=== PATIENT | male | born 1955 | race Caucasian/White ===

== ENCOUNTER 2019-03-23 06:19 | Inpatient (IN) ==
--- NOTE | 2019-02-25 15:00 | PAT Medication Instructions ---
Medication Instructions Date of Service February 25, 2019 Home Medications carboxymethylcellulose sodium [Refresh Tears] 2 drp OPHTHALMIC (EYE) BID PRN diclofenac sodium 75 mg PO BID multivitamin 1 tab PO QAM omeprazole 20 mg PO QAM ASK your surgeon for instructions diclofenac sodium 75 mg PO BID DO NOT take the morning of surgery multivitamin 1 tab PO QAM Take morning of surgery With a small sip of water, OTHERWISE NOTHING TO EAT OR DRINK AFTER MIDNIGHT: carboxymethylcellulose sodium [Refresh Tears] 2 drp OPHTHALMIC (EYE) BID PRN (if needed) omeprazole 20 mg PO QAM Other Notes If you have any questions please call us at [phone] or [phone] or [phone] or [phone]
--- NOTE | 2019-02-26 08:32 | History & Physical Report ---
Date of Service February 26, 2019 date of surgery: 03/23/19 Assessment & Plan (1) Osteoarthritis of right knee: Risks and benefits of procedure discussed in detail today, patient would like to proceed with a Right total knee replacement at [facility] as scheduled. will obtain medical clearance through his PCP at the [facility] prior to surgery as well as obtain PATs at [facility]. Will place on ASA 81mg po bid x 1 month post op, f/u 2 weeks post op for routine post-operative care and x-ray, sooner if having any problems. will make arrangements for HHPT at the time of discharge. At this point in time, has failed conservative measures and would like to proceed with surgical intervention. History of Present Illness Chief Complaint: Right knee pain Primary Care Provider: OCTAVIANO PCP Josh is a 63 year old male who complains of right knee pain, presents for pre-op evaluation prior to a Right total knee replacement by dr Galeano at [facility]. He complains of pain, crepitus, decreased range of motion, instability and stiffness in his knee. He states that the symptoms have been chronic and non- traumatic and the pain occurs constantly with intermittent worsening. Currently the patient states that the symptoms are moderate-severe. The pain is described as aching, sharp and throbbing. The symptoms are aggravated by ascending stairs, daily activities, first steps while awake walking. Prior NSAIDs include Aleve and ibuprofen. Allergies Allergy/AdvReac Type Severity Reaction Status Date / Time No Known Allergies Allergy Unverified 02/23/19 15:06 Home Medications Home Medications Medication Instructions Recorded Confirmed Type carboxymethylcellulose sodium 2 drp OPHTHALMIC (EYE) BID PRN 02/23/19 02/23/19 History [Refresh Tears] diclofenac sodium 75 mg PO BID 02/23/19 02/23/19 History multivitamin 1 tab PO QAM 02/23/19 02/23/19 History omeprazole 20 mg PO QAM 02/23/19 02/23/19 History Past Med/Surg History Medical History Alcoholism No ETOH x 8 years Diabetes mellitus, type 2 diet controlled Diverticular disease GERD (gastroesophageal reflux disease) Osteoarthritis Surgical History History of bowel resection History of cholecystectomy History of colonoscopy History of colostomy History of colostomy reversal History of esophagogastroduodenoscopy (EGD) History of hernia repair History of orchiectomy, unilateral History of surgery right/left kidney tumor removal (benign) History of tooth extraction Family History (Updated 02/26/19 @ 08:31 by Addison Guzman PA-C) Unknown No family history of adverse response to anesthesia Social History Preferred Language: Ethiopian Communication Ability: Effective Fish Cutter Required: No Beliefs That Will Affect Care: None Current Living Situation: Alone Other Information That Helps Us Care for You: No Feels Safe at Home: Yes Safety Concerns: Feels Safe At This Time Smoking Status: Former smoker Do You Dip or Chew Tobacco: No ; Smoking End Date: QUIT 25 YEARS AGO ; Second Hand Exposure: No ; Tobacco Cessation Education Requested by Patient: No Hx Alcohol Use: Yes (RECOVERING ALCOHOLIC - QUIT 8 YEARS AGO) Hx Substance Use: No Review of Systems Review of Systems: All systems reviewed & are unremarkable except as noted in HPI & below Constitutional: no fever, no chills and no sweats Respiratory: no cough and no dyspnea Cardiovascular: no chest pain, no dyspnea and no orthopnea Gastrointestinal: no abdominal pain, no nausea and no vomiting Musculoskeletal: as per Subjective / HPI Physical Exam Physical Exam: Ht: 5ft 8in Wt: 99.8kg BP: 122/76 Pulse: 62 Constitutional: WD/WN, vitals as above no acute distress Respiratory: normal respiratory effort, lungs clear to auscultation no respiratory distress, no labored breathing and does not use accessory muscles Cardiovascular: RRR, no murmur, no edema Gastrointestinal (Abdomen): normal bowel sounds, soft, nontender, no hepatosplenomegaly Musculoskeletal: Knee: + knee abnormal to inspection (Right knee), + effusion (+1 effusion), + surgical incision (well healed portals), + limited ROM of knee (ROM 0/3/110), + knee ROM with crepitation, + joint line tenderness (medial joint line) and + Claire's sign positive; no deformity, no skin erythema, no ecchymosis, no valgus laxity, no varus laxity, anterior drawer test negative, Segundo's sign negative and pivot shift test negative Results & Data Diagnostic Findings Right Knee X-ray from 12/09/18 showing advanced degenerative changes to the right knee, narrowing of the medial compartment and patello-femoral joint with patellar spurring noted, findings showing joint space narrowing of the medial compartment and patello-femoral joint, osteophyte formation and subchondral sclerosis noted. overall varus alignment. no acute bony pathology noted.
--- NOTE | 2019-02-26 12:19 | Anesthesiology Consultation ---
Date of Service February 26, 2019 Assessment & Plan (1) Encounter for pre-operative examination: - Awaiting review preop testing (labs, EKG, CXR). - Awaiting surgeon-ordered PCP preop evaluation scheduled 02/19 ([facility]). Chart Review Chart Review: Patient seen in Pre Admission Testing Teaching & Discussion Pre-Anesthesia Teaching/Discussion Notes: Instructed NPO after midnight before surgery,except medications with 15 cc of water. Medication instructions provided according to the PAT guidelines. History Surgery Operation Date: 03/23/19 11:25 Proposed Procedures p Right Total Knee Arthroplasty - Maxx Galeano DO Height/Weight Height: 5 ft 8 in Weight: 107.2 kg Allergies Allergy/AdvReac Type Severity Reaction Status Date / Time No Known Allergies Allergy Unverified 02/23/19 15:06 Medications Home Medications Medication Instructions Recorded Confirmed Last Taken carboxymethylcellulose sodium 2 drp OPHTHALMIC (EYE) BID PRN 02/23/19 02/23/19 Unknown [Refresh Tears] diclofenac sodium 75 mg PO BID 02/23/19 02/23/19 Unknown multivitamin 1 tab PO QAM 02/23/19 02/23/19 Unknown omeprazole 20 mg PO QAM 02/23/19 02/23/19 Unknown Past Medical History Medical History Diabetes mellitus, type 2 diet controlled Diverticular disease GERD (gastroesophageal reflux disease) controlled Obesity Osteoarthritis Renal neoplasm s/p resection (benign) Exercise / Class Metabolic Activity III < 4 Walking/Shop/Light housework Past Family History Family History Unknown No family history of adverse response to anesthesia Past Surgical History Surgical History History of bowel resection 2/2 diverticulitis History of cholecystectomy History of colonoscopy History of colostomy History of colostomy reversal History of esophagogastroduodenoscopy (EGD) History of hernia repair History of orchiectomy, unilateral History of surgery right/left kidney tumor removal (benign) History of tooth extraction Past Anesthesia History No Hx of Anesthesia Complications and No Family Hx of Anesthesia Complications History of PONV No Hx of PONV and No Hx of Motion Sickness Social History Smoking Status: Former smoker Do You Dip or Chew Tobacco: No Smoking End Date: QUIT 25 YEARS AGO Hx Alcohol Use: Yes (RECOVERING ALCOHOLIC - No ETOH x 8 YEARS) Hx Substance Use: No substance use type: does not use Review of Systems Reflux controlled. Patient denies chest pain, shortness of breath, cough, wheezing, palpitations. Physical Exam Vital Signs Last Vital Signs Temp 36.8 C 02/26/19 12:14 Pulse 83 02/26/19 12:14 Resp 20 02/26/19 12:14 BP 128/78 02/26/19 12:14 Pulse Ox 96 02/26/19 12:14 PHYSICAL Full neck and c-spine range of motion. Full TMJ range of motion. TMD 3 finger breaths Mallampati Score 3 (small oral opening) Dentition: missing side tooth Lungs: clear throughout to auscultation Cardiac: regular rate and rhythm, no murmurs noted Spine: normal Carotid arteries: negative bruit Extremities: no edema Trimmed munguia Thick neck
[2019-02-26 13:17] LABS: Basophils # (auto) 0.03 K/uL (0-0.2); Basophils % (auto) 0.6 %; Eosinophils % (auto) 3.9 %; Hematocrit (blood only) 42.9 % (42-52); Immature Granulocytes # (auto) 0.02 K/uL (0.00-0.02); Immature Granulocytes % (auto) 0.4 %; Lymphocytes # (auto) 1.18 K/uL (1.2-3.4); Lymphocytes % (auto) 23.3 %; Mean Corpuscular Hemoglobin 31.2 pg (25-34); Mean Corpuscular Volume 89.2 fL (80-100); Mean Platelet Volume 10.2 fL (7.4-10.4); Monocytes # (auto) 0.25 K/uL (0.11-0.59); Monocytes % (auto) 4.9 %; Neutrophils # (auto) 3.39 K/uL (1.4-6.5); Neutrophils % (auto) 66.9 %; Platelet Count 160 K/uL (130-400); RDW Coefficient of Variation 13.8 % (11.5-14.5); RDW Standard Deviation 44.6 fL (36.4-46.3); Red Blood Count 4.81 M/uL (4.7-6.1); White Blood Count 5.07 K/uL (4.8-10.8)
--- NOTE | 2019-02-26 13:22 | XRay Report ---
XR chest Pre-admission PA/Lat HISTORY: Preop. COMPARISON: None. FINDINGS: Small linear scarlike density within the right middle lobe, unchanged. The lungs are otherw ise clear. No pleural effusions. No pneumothorax. The heart is normal in size. IMPRESSION: No significant change compared to the prior study. No acute process. Electronically signed by: Coy Rendon M.D. 02/26/2019 1:20 PM
[2019-02-26 13:27] LABS: Partial Thromboplastin Time 25.9 Seconds (21.0-31.0); Prothrombin Time 10.6 Seconds (9.0-12.0)
[2019-02-26 13:36] LABS: Appearance Urine Clear (Clear); Bacteria Urine Automated Negative (Negative); Bilirubin Urine Negative (Negative); Blood Urine Negative (Negative); Color Urine Dark Yellow; Epithelial Cell Urine Auto >30 /lpf (0-5); Glucose Urine UA Negative (Negative); Ketones Urine Trace (Negative); Leukocyte Esterase Urine Trace (Negative); Nitrite Urine Negative (Negative); Protein Urine Negative (Negative); RBC Urine Automated 0-4 /hpf (0-4); Specific Gravity Urine 1.027 (1.000-1.030); Urobilinogen Urine Negative (Negative); pH Urine 5.5 (4.5-7.5)
[2019-02-26 13:39] LABS: Calcium 8.8 mg/dl (8.5-10.1); Creatinine Clr Calc Pharmacy 80.2 ml/min; Est GFR (African American) 82.1; Est GFR (Non-African American) 70.9; Potassium 4.3 mmol/L (3.5-5.1)
[~2019-03-23 06:19] MED LIST: ACETAMINOPHEN 500 MG TAB PO SCH; CEFAZOLIN 2000MG 2,000 MG/15 ML SYR IV SCH; CeleBREX 200 MG CAP PO SCH; FAMOTIDINE 20 MG TAB PO SCH; GABAPENTIN 300 MG CAP PO SCH; LR 500ML BOLUS, THEN 15ML/HR IV SCH; METOCLOPRAMIDE HCL 10 MG TABLET PO SCH; ROPIVACAINE 0.5% HCL/PF 150 MG, BUPIVACAINE 0.5% MPF 30 ML, EPINEPHrine 30MG/30ML (OR U... INFIL SCH; TRANEXAMIC ACID 1,000 MG **IV Pre-op IV SCH; dexAMETHasone 4 MG TAB PO SCH
[2019-03-23] MEDS ORDERED: TRANEXAMIC ACID 1,000 MG **IV Intra-op IV SCH (06:30)
[2019-03-23] MEDS ORDERED: BUPIVACAINE 0.5 % 5 MG/1 ML PF 10ML VIAL ONE (06:33)
[2019-03-23] MEDS ORDERED: BACITRACIN INJ 50,000 UNIT VIAL ONE (06:58)
[2019-03-23] MEDS ORDERED: MIDAZOLAM HCL 1 MG/ML 2ML VIAL ONE (07:04)
[2019-03-23] MEDS ORDERED: fentaNYL citrate 100 MCG/2 ML VIAL ONE (07:04)
--- NOTE | 2019-03-23 07:27 | History & Physical Bridge Note ---
Date of Service March 23, 2019 History & Physical Bridge Note I have examined the patient, reviewed the History & Physical and in the interval since the performance of the History & Physical I have noted the following changes of clinical significance: no changes noted
[2019-03-23] MEDS ORDERED: fentaNYL citrate 100 MCG/2 ML VIAL IV PRN (08:10)
[2019-03-23] MEDS ORDERED: ONDANSETRON INJ 2 MG/ML 2 ML VIAL IV PRN ×2 (08:10→12:00)
[2019-03-23] MEDS ORDERED: ePHEDrine sulfate 50 MG/ML AMP IV PRN (08:10)
[2019-03-23] MEDS ORDERED: ATROPINE SULFATE 0.1 MG/ML 10ML SYR IV PRN (08:10)
[2019-03-23] MEDS ORDERED: PROPOFOL IV EMULSION 10 MG/ML 20 ML VIAL IV ONE (09:09)
--- NOTE | 2019-03-23 09:45 | Operative Report ---
Post Operative Report Pre & Post Diagnosis Operation Date: 03/23/19 08:35 Pre-Op Diagnosis: Unilateral Primary Osteoarthritis, Right Knee Post-Op Diagnosis: Unilateral Primary Osteoarthritis, Right Knee I identified the patient and participated in the time-out.: Yes Procedure Operation Date: 03/23/19 08:35 Actual Procedures p Right Total Knee Arthroplasty(Right) utilizing Jones & NephProactive Comfort journey 2 patient matched total knee arthroplasty size 6 femur 5 tibia 12 poly-32 oval patella- Maxx Galeano DO Surgeon Maxx Galeano DO Glucose And Syrup Weigher Kory MOSHER Estimated Blood Loss 5 Findings Consistent with Post-Op Diagnosis Patient presents with severe end-stage DJD right knee with varus alignment bone to bone eburnated bone marginal osteophyte subchondral cystic changes moderate to large effusion no response to conservative management Specimens Bone and cartilage Drains Medium bore Hemovac Complications none Disposition Accompanied Patient To Recovery: No Disposition: Recovery Room Indications Patient presents as a 63-year-old white male with severe end-stage tricompartmental degenerative joint disease of the right knee no response to conservative management clinic physical therapy anti-inflammatories relative rest activity modification corticosteroid injection Visco supplementation patient presents for right total knee arthroplasty the above intraoperative findings no time surgery Description of Procedure After proper identification of the patientAfter proper prepping and draping of the Right lower extremity anterior midline incision was made over the region of the extensor extensor mechanism after meticulous hemostasis was obtained and maintained in subcutaneous tissues a medial parapatellar incision was made The patella was subluxed lateralward the medial lateral gutter were cleaned from any hypertrophic synovitis and scar tissue of the distal femoral block was placed and the distal femoral osteotomy cut was made subsequently the chamfers anterior and posterior osteotomy cuts were made utilizing the 4-in-1 block the tibia was subsequently subluxed anteriorward medial and ateral meniscal remnants were excised in their entirety remnants of the anterior and posterior cruciate ligaments were excised in their entirety excellent exposure of the proximal tibia was obtained the tibial osteotomy guide was placed on the proximal tibial osteotomy cut was made once again the knee was irrigated with copious amounts of sterile saline solution the patella was subsequently everted lateralward thickened scar tissue around the patella was removed the patella was subsequently cut utilizing a freehand technique and was drilled prepared for final preparation and placement of patella socially flexion-extension gaps were checked and the equal and symmetric trials were placed to the appropriate femoral and tibial trials with poly-spacer being placed for equal flexion and extension gaps and full range of motion including extension to 0 and flexion to 140 the trial components after having been taken to recovery range of motion was subsequently removed meticulous hemostasis was obtained and maintained subsequently a knee block injection of joint cocktail including ropivacaine 0.5% 150 mg. Bupivacaine 0.5% epinephrine 1-200,030 mL's toradol 30 mg dexamethasone 4 mg ketamine 10 mg clonidine 100 micrograms normal saline solution 30 mg was infiltrated into the soft tissues of the posterior knee medial lateral gutters and periosteal synovium special attention was paid to protect neurovascular structures at all times subsequently trial components having been removed the knee was irrigated with sterile saline solution. debris was removed the proximal tibia was subsequently prepared and was made ready for the placement of the tibial component tibial component was also cemented and tamped into position the femoral component was subsequently placed and cemented in the position the patellar component was subsequently cemented in position because hemostasis once again obtained and maintained wound having been thoroughly irrigated with debridement and debridement lavage was performed as well as a medial parapatellar incision closed with #1 Vicryl in interrupted fashion subcutaneous was closed with #2 Vicryl skin was closed with skin clips. PA-C was necessary for prepping and drapping as well as wound closure of deep fascia Sub cutaneous tissue and skin and was necessary for the case. A sterile compressive dressing was placed patient was taken to recovery in stable condition of report dictated by Froylan I attest to the content of the Intraoperative Record and any orders documented therein. Any exceptions are noted below. I attest to the content of the Intraoperative Record and any orders documented therein. Any exceptions are noted below.
--- NOTE | 2019-03-23 11:05 | XRay Report ---
XR knee RT 1 or 2V routine CLINICAL HISTORY: 63 years-old Male presenting with Surgical Post Op. TECHNIQUE: Frontal and lateral views of the right knee were obtained. COMPARISON: None. FINDINGS: Postsurgical changes of total right knee arthroplasty with patellar resurfacing. Expected intra-artic ular and soft tissue emphysema. Surgical drains in place. Overlying skin rafael. No periprosthetic f racture or lucency. No malalignment. IMPRESSION: Expected postsurgical appearance status post total right arthroplasty with patellar resurfacing. Electronically signed by: Brian Saini M.D. 03/23/2019 11:03 AM
--- NOTE | 2019-03-23 11:55 | Anesthesiology Progress Note ---
Date of Service March 23, 2019 Anesthesia Post Procedure Vital Signs Vital Signs: Temp Pulse Pulse Resp BP BP Pulse Ox 03/23/19 11:35 76 17 128/77 92 03/23/19 11:25 97.7 F 76 16 129/69 94 03/23/19 11:15 77 12 137/83 97 03/23/19 11:05 73 14 139/79 98 03/23/19 10:55 74 15 140/85 93 03/23/19 10:45 73 15 132/82 95 03/23/19 10:35 77 12 135/82 95 03/23/19 10:25 98.2 F 73 14 142/86 H 100 03/23/19 06:57 98.4 F 72 18 147/95 H 97 Transfer of Care Handoff Completed per policy Notes Mental Status: alert / awake / arousable and participated in evaluation Patient Amnestic to Procedure: Yes Nausea / Vomiting: adequately controlled Pain: adequately controlled Airway Patency, RR, SpO2: stable & adequate BP & HR: stable & adequate Hydration State: stable & adequate Neuraxial Anesthesia: was administered and sensory block is resolving Anesthetic Complications: no major complications apparent and Pt Satisfied with anesthetic care
[2019-03-23] MEDS ORDERED: OXYCODONE HCL IR 5 MG TAB (IMMEDIATE RELEASE) PO PRN (12:00)
[2019-03-23] MEDS ORDERED: MAGNESIUM HYDROXIDE SUSP 30 ML UDC PO PRN (12:00)
[2019-03-23] MEDS ORDERED: ARTIFICIAL TEARS OP PRN (12:00)
[2019-03-23] MEDS ORDERED: NALOXONE HCL 0.4 MG/1 ML VIAL/CARP IV PRN (12:00)
[2019-03-23] MEDS ORDERED: bisacodyL 10 MG SUPP PR PRN (12:00)
[2019-03-23] MEDS ORDERED: HYDROmorphone INJ 0.5 MG/0.5 ML SYR IV PRN (12:00)
[2019-03-23] MEDS ORDERED: PHARMACY GLYCEMIC MGMT CONSULT PRN (12:22)
[2019-03-23] MEDS ORDERED: CARBOHYDRATES FOR HYPOGLYCEMIA PO PRN (12:45)
[2019-03-23] MEDS ORDERED: DEXTROSE 50% 50 ML SYRINGE IV PRN (12:45)
[2019-03-23] MEDS ORDERED: GLUCOSE 10 TABS/TUBE PO PRN (12:45)
[2019-03-23] MEDS ORDERED: GLUCOSE 40% GEL 15 GM TUBE PO PRN (12:45)
[2019-03-23] MEDS ORDERED: GLUCAGON FOR INJ 1 MG VIAL IM PRN (12:45)
[2019-03-23] MEDS: SODIUM CHLORIDE 0.9% 1000ML 1,000 ML IV SCH ×2 (12:47→23:59)
[2019-03-23] MEDS: INSULIN ASPART 100 UNITS/ML 3 ML PEN SC SCH ×3 (13:25→21:39)
[2019-03-23] MEDS: ACETAMINOPHEN 500 MG TAB PO SCH ×2 (13:28→21:37)
--- NOTE | 2019-03-23 14:16 | Pharmacy Report ---
Glycemic Control Consultation - Date of Service March 23, 2019 - Scope Scope: Glycemic Pharmacist consulted by Kory Lui PA-C on 03/23/19 for glycemic control and to write orders per [facility] inpatient glycemic control protocol - Objective Weight: 107.2 kg Accuchecks BSG (last 24hrs): 03/23/19 03/23/19 06:48 10:37 POC Glucose 129 H 158 H - Recent Pertinent Medications Outpatient Anti-diabetic Regimen: * Diet-controlled * Per patient - previously on metformin, but was discontinued because his blood sugars were well controlled (unsure of last A1c) * A1c pending for 03/24/19 AM Risk Factors for Insulin Resistance: * Steroids: Dexamethasone 8 mg PO x 1 preoperatively * Recent Surgery: POD #0 s/p right total knee arthroplasty * Diet: T2DM - Assessment & Plan Assessment & Plan: ASSESSMENT: * WAdelaide is a 63 year old male POD #0 s/p right total knee arthroplasty * Dexamethasone 8 mg PO x 1 given preoperatively * Patient has a history of diabetes - previously taking metformin, but now diet controlled * Will assess current glycemic control with AM A1c * BSG at 1454 was 234 mg/dL (approximately 2.5 hours after eating) * Will order one-time dose of Lantus in light of possible steroid-induced hyperglycemia PLAN FOR INPATIENT GLYCEMIC CONTROL: * Basal insulin * Lantus 16 unit dose this afternoon (0.2 unit/kg of adjusted body weight) * Reassess ongoing basal needs tomorrow * Bolus insulin * NovoLog per scale ACHS or Q6hrs while NPO * Goal Range: Low 110 mg/dL - High 150 mg/dL * Correction Factor: 25 mg/dL/unit * Nutritional / Prandial insulin per carb ratio of 1 unit per 8 grams CHO consumed * Overnight checks at 00,04 with same parameters * Please note that the plan above was derived based on current level of insulin resistance and hospital stress. These recommendations are appropriate for inpatient admission only. Plan of care upon discharge will need to be reassessed to avoid potential outpatient hypo/hyperglycemia. Thank you.
[2019-03-23] MEDS ORDERED: LANTUS PER UNIT CHARGE SQ ONE (15:15)
[2019-03-23] MEDS: CEFAZOLIN 2000MG 2,000 MG/15 ML SYR IV SCH (16:33)
[2019-03-23] MEDS ORDERED: SENNA 8.6 MG TAB PO SCH (21:00)
[2019-03-23] MEDS: DOCUSATE SODIUM 100 MG CAP PO SCH (21:37)
[2019-03-23] MEDS: ASPIRIN 81 MG ECTAB PO SCH (21:38)
[2019-03-24] MEDS: CEFAZOLIN 2000MG 2,000 MG/15 ML SYR IV SCH
[2019-03-24] MEDS: INSULIN ASPART 100 UNITS/ML 3 ML PEN SC SCH ×3 (00:12→08:43)
[2019-03-24] MEDS: ACETAMINOPHEN 500 MG TAB PO SCH (05:51)
[2019-03-24 06:55] LABS: Hematocrit (blood only) 36.1 % (42-52); Mean Corpuscular Volume 86.2 fL (80-100); Mean Platelet Volume 9.5 fL (7.4-10.4); Platelet Count 153 K/uL (130-400); RDW Coefficient of Variation 13.2 % (11.5-14.5); RDW Standard Deviation 41.1 fL (36.4-46.3); Red Blood Count 4.19 M/uL (4.7-6.1); White Blood Count 11.58 K/uL (4.8-10.8)
[2019-03-24 07:26] LABS: BUN Creatinine Ratio 23.2 (10-20); Calcium 8.4 mg/dl (8.5-10.1); Creatinine Clr Calc Pharmacy 91.1 ml/min; Est GFR (African American) 95.8; Est GFR (Non-African American) 82.6; Potassium 3.6 mmol/L (3.5-5.1)
--- NOTE | 2019-03-24 07:39 | Orthopedic Progress Note ---
Date of Service March 24, 2019 Assessment & Plan (1) History of total right knee replacement: POD #1 s/p Right TKA pt/ot dvt proph with ALFRED/SCD/ASA plan for d/c home with HHPT after PT today. have hemovac pulled by home nursing tomorrow. BINDU x 7 days. Subjective POD #1 s/p Right TKA Review of Systems Constitutional: no fever, no chills and no sweats Respiratory: no cough and no dyspnea Cardiovascular: no chest pain and no dyspnea Gastrointestinal: no abdominal pain, no nausea and no vomiting Physical Exam Physical Exam: Vital Signs Temp 36.8 C 03/24/19 03:20 Pulse 74 03/24/19 03:20 Resp 16 03/24/19 03:20 BP 134/70 03/24/19 03:20 Pulse Ox 95 03/24/19 03:20 Intake & Output 03/23/19 03/24/19 03/24/19 18:59 06:59 18:59 Intake Total 2955 / 3780 825 / 3780 Output Total 130 / 1130 1000 / 1130 225 / 225 Balance 2825 / 2650 -175 / 2650 -225 / -225 Weight 107.2 kg Intake: IV 1375 / 2200 825 / 2200 Lr 1,000 ml @ 15 mls/hr IV . 1000 / 1000 Q24H [facility] Rx#:[id number] Nss 1000ML 1,0 00 ml @ 100 mls/ 175 / 1000 825 / 1000 hr IV .Q10H [facility] Rx#:[id number] TRANEXAMIC ACI D / 0.7% NACL 1, 200 / 200 000 mg In 100 ml @ 600 mls/hr IV 0630 [facility] Rx #:[id number] IV Perioperative 1100 / 1100 Oral 480 / 480 Output: Urine 900 / 900 Estimated Blood Loss 5 / 5 Drain Output 125 / 225 100 / 225 225 / 225 Right Knee 125 / 225 100 / 225 225 / 225 Constitutional: WD/WN, vitals as above no acute distress Musculoskeletal: Right Leg: NVDI, calf SNT, negative be sign. DP palpable, able to wiggle toes/ankle movement without difficulty. dressing clean dry and intact. Results & Data Vital Signs (Past 12 Hours) Vital Signs Temp Pulse Resp BP Pulse Ox 03/24/19 03:20 36.8 C 74 16 134/70 95 03/23/19 23:17 36.9 C 87 16 130/80 96 Laboratory Results Laboratory Results WBC 11.58 K/uL (4.8-10.8) H 03/24/19 06:43 RBC 4.19 M/uL (4.7-6.1) L 03/24/19 06:43 Hgb 13.0 g/dL (14.0-18.0) L 03/24/19 06:43 Hct 36.1 % (42-52) L 03/24/19 06:43 MCV 86.2 fL (80-100) 03/24/19 06:43 MCH 31.0 pg (25-34) 03/24/19 06:43 MCHC 36.0 g/dL (32-36) 03/24/19 06:43 RDW Std Deviation 41.1 fL (36.4-46.3) 03/24/19 06:43 RDW Coeff of Mayelin 13.2 % (11.5-14.5) 03/24/19 06:43 Plt Count 153 K/uL (130-400) 03/24/19 06:43 MPV 9.5 fL (7.4-10.4) 03/24/19 06:43 Immature Gran % (Auto) 0.4 % 02/26/19 12:27 Neut % (Auto) 66.9 % 02/26/19 12:27 Lymph % (Auto) 23.3 % 02/26/19 12:27 Dent % (Auto) 4.9 % 02/26/19 12:27 Eos % (Auto) 3.9 % 02/26/19 12:27 Baso % (Auto) 0.6 % 02/26/19 12:27 Immature Gran # (Auto) 0.02 K/uL (0.00-0.02) 02/26/19 12:27 Neut # (Auto) 3.39 K/uL (1.4-6.5) 02/26/19 12:27 Lymph # (Auto) 1.18 K/uL (1.2-3.4) L 02/26/19 12:27 Dent # (Auto) 0.25 K/uL (0.11-0.59) 02/26/19 12:27 Eos # (Auto) 0.20 K/uL (0-0.5) 02/26/19 12: Baso # (Auto) 0.03 K/uL (0-0.2) 02/26/19 12: PT 10.6 Seconds (9.0-12.0) 02/26/19 12: INR 1.0 (0.9-1.1) 02/26/19 12: APTT 25.9 Seconds (21.0-31.0) 02/26/19 12: PTT Ratio 1.0 02/26/19 12:27 Sodium 140 mmol/L (136-145) 03/24/19 06:43 Potassium 3.6 mmol/L (3.5-5.1) 03/24/19 06:43 Chloride 110 mmol/L (98-107) H 03/24/19 06:43 Carbon Dioxide 24 mmol/L (21-32) 03/24/19 06:43 Anion Gap 6.0 (3-11) 03/24/19 06:43 BUN 22 mg/dl (7-18) H 03/24/19 06:43 Creatinine 0.96 mg/dl (0.6-1.4) 03/24/19 06:43 Est Cr Clr Drug Dosing 91.1 ml/min 03/24/19 06:43 Est GFR ( Amer) 95.8 03/24/19 06:43 Est GFR (Non-Af Amer) 82.6 03/24/19 06:43 BUN/Creatinine Ratio 23.2 (10-20) H 03/24/19 06:43 Glucose 135 mg/dl (70-99) H 03/24/19 06:43 POC Glucose 135 (70-99) H 03/24/19 03:22 Calcium 8.4 mg/dl (8.5-10.1) L 03/24/19 06:43 Urine Color Dark Yellow 02/26/19 12:27 Urine Appearance Clear (Clear) 02/26/19 12:27 Urine pH 5.5 (4.5-7.5) 02/26/19 12: Ur Specific [place] 1.027 (1.000-1.030) 02/26/19 12: Urine Protein Negative (Negative) 02/26/19 12: Urine Glucose (UA) Negative (Negative) 02/26/19 12:27 Urine Ketones Trace (Negative) H 02/26/19 12:27 Urine Blood Negative (Negative) 02/26/19 12:27 Urine Nitrite Negative (Negative) 02/26/19 12:27 Urine Bilirubin Negative (Negative) 02/26/19 12:27 Urine Urobilinogen Negative (Negative) 02/26/19 12:27 Ur Leukocyte Esterase Trace (Negative) H 02/26/19 12:27 Urine WBC (Auto) 5-10 /hpf (0-5) H 02/26/19 12:27 Urine RBC (Auto) 0-4 /hpf (0-4) 02/26/19 12:27 U Hyaline Cast (Auto) 1-5 /lpf (0-5) 02/26/19 12:27 U Epithel Cells (Auto) >30 /lpf (0-5) H 02/26/19 12:27 Urine Bacteria (Auto) Negative (Negative) 02/26/19 12:27 Blood Type O Negative 02/26/19 12:27 Antibody Screen NEGATIVE 02/26/19 12:27 Diagnostic Findings XR knee RT 1 or 2V routine CLINICAL HISTORY: 63 years-old Male presenting with Surgical Post Op. TECHNIQUE: Frontal and lateral views of the right knee were obtained. COMPARISON: None. FINDINGS: Postsurgical changes of total right knee arthroplasty with patellar resurfacing. Expected intra-articular and soft tissue emphysema. Surgical drains in place. Overlying skin rafael. No periprosthetic fracture or lucency. No malalignment. IMPRESSION: Expected postsurgical appearance status post total right arthroplasty with patellar resurfacing.
[2019-03-24] MEDS: ASPIRIN 81 MG ECTAB PO SCH (08:39)
[2019-03-24] MEDS: DOCUSATE SODIUM 100 MG CAP PO SCH (08:41)
[2019-03-24] MEDS ORDERED: MULTIVITAMIN TAB PO SCH (09:00)
[2019-03-24] MEDS ORDERED: PANTOprazole 40 MG TAB PO SCH (09:00)
[2019-03-24] MEDS ORDERED: LANTUS PER UNIT CHARGE SQ SCH (09:15)
[2019-03-24 09:57] LABS: Estimated Average Glucose 108 mg/dl; Hemoglobin A1C 5.4 % (4.5-5.6)
--- NOTE | 2019-03-29 11:24 | Discharge Summary ---
Date of Service March 29, 2019 Admission HPI Per Admitting Provider Josh is a 63 year old male who complains of right knee pain, presents for pre-op evaluation prior to a Right total knee replacement by dr Galeano at [facility]. He complains of pain, crepitus, decreased range of motion, instability and stiffness in his knee. He states that the symptoms have been chronic and non- traumatic and the pain occurs constantly with intermittent worsening. Currently the patient states that the symptoms are moderate-severe. The pain is described as aching, sharp and throbbing. The symptoms are aggravated by ascending stairs, daily activities, first steps while awake walking. Prior NSAIDs include Aleve and ibuprofen. Admission Exam Per Admitting Provider Physical Exam: Ht: 5ft 8in Wt: 99.8kg BP: 122/76 Pulse: 62 Constitutional: WD/WN, vitals as above no acute distress Respiratory: normal respiratory effort, lungs clear to auscultation no respiratory distress, no labored breathing and does not use accessory muscles Cardiovascular: RRR, no murmur, no edema Gastrointestinal (Abdomen): normal bowel sounds, soft, nontender, no hepatosplenomegaly Musculoskeletal: Knee: + knee abnormal to inspection (Right knee), + effusion (+1 effusion), + surgical incision (well healed portals), + limited ROM of knee (ROM 0/3/110), + knee ROM with crepitation, + joint line tenderness (medial joint line) and + Claire's sign positive; no deformity, no skin erythema, no ecchymosis, no valgus laxity, no varus laxity, anterior drawer test negative, Segundo's sign negative and pivot shift test negative Principal Diagnosis Right Knee Djd Discharge Data Allergies Allergy/AdvReac Type Severity Reaction Status Date / Time No Known Allergies Allergy Unverified 03/23/19 06:54 Consultations 03/23/19 12:00 Consult Case Management - Discharge Planning Routine Procedures Performed Operation Date: 03/23/19 08:35 Actual Procedures p Right Total Knee Arthroplasty(Right) - Maxx Galeano DO Ordered Studies 03/23/19 08:46 US - OR guided needle placemen Routine Hospital Course (1) Osteoarthritis of right knee: Patient was admitted on the above-noted date and had the above-noted surgery performed which they tolerated well. On the first postoperative day,the patient was without complaints. Pain was controlled. Vital signs are stable and they were afebrile hemoglobin was 13.0. Hemovac drainage was minimal and dressings were clean, dry, and intact. Neurovascular was intact. Calves are soft and nontender. The patient was started on physical therapy and occupation al therapy protocols. Continued on DVT prophylaxis and pain management. Patient obtained 100 degrees of flexion and ambulated 200 feet. They continued to remain stable and progress with physical therapy and was felt that they could be discharged home. Total Time Total Time Spent Total Time Spent (In Minutes): 5 Discharge Plan Discharge Items Patient Disposition: Home - Home Health Services Reason For Visit: Unilateral Primary Osteoarthritis, Right Knee Discharge Diagnosis: right total knee replacement Condition on Discharge: Good Activity: Per Instructions section Lifting: Wait until after follow-up appointment Weightbearing: Full weightbearing and Right weightbearing Non-emergency contact: Surgeon Call non-emergency contact if: you have any medication questions, your temperature is above 101, your wound has increased redness, your wound has increased drainage and your wound pain has increased Follow-up/Referrals: Seth Guzman DO [Primary Care Provider] - Diet: Regular Addtl Attending Provider Instructions: ACTIVITY RECOMMENDATIONS: SELF CARE INSTRUCTIONS AFTER TOTAL KNEE REPLACEMENT A. You may need to continue a physical therapy program after discharge from the hospital. There are several options available to you. Your doctor will assist you in selecting the best one for you. 1. An out-patient facility 2 to 3 times a week for therapy or home therapy. 2. Continue working on all exercises taught to you in the hospital. Your goals should be to increase bending of your knee to 90 degrees and beyond and to fully straighten your knee. B. You may progress at your own pace from walking with a walker or crutches to a cane; then to no assistive devices. C. Make walking a part of your daily routine. Be up as much as comfortable with rest periods throughout the day. Rest with leg elevation is very important. Use the ice wrap frequently for the first 3-4 weeks. D. There are no restrictions on activities. You may ride in a car, shop, participate in director trial and all social activities. E. Wear the long elastic stockings (ALFRED hose) 20 hours a day for 2 weeks after surgery. They can be removed several times a day for laundering and for a bath. F. You may shower, no tub baths until cleared by your doctor. SPECIAL CARE INSTRUCTIONS: VERY IMPORTANT TO READ AND REVIEW A. There are a few signs you need to watch for after you are home. Call [facility] if you notice any of the followin. Increased severe knee pain. Some pain is expected especially when you exercise. 2. Increased swelling in your leg or knee; pain or swelling of the calf muscle in either lower leg. 3. Any fluid drainage from the incision. 4. Shortness of breath or chest pain. B. Please call [facility] at if you have any concerns or questions about your operation or recovery. The doctor or his nurse will return your call promptly. C. You must take antibiotics before dental work, bladder, bowel or other surgery. Your doctor will provide you with a permanent care to carry describing thi s precaution. IMPORTANT: * REMEMBER TO TAKE ASPIRIN, 81 MG, TWICE DAILY FOR 4 WEEKS UNLESS OTHERWISE DIRECTED. THIS IS YOUR BLOOD THINNER. * HIGH RISK PATIENTS MAY BE PRESCRIBED A STRONGER BLOOD THINNER. THIS WILL BE PROVIDED AT DISCHARGE. * CALL IF INCREASED PAIN, REDNESS, DRAINAGE OR FEVER GREATER THAT 101. * WEAR ALFRED HOSE 20 HOURS PER DAY FOR 2 WEEKS. * BINDU Dressing- This is a large suction dressing covering your incision. This will help pull any excess drainage from the wound and allow your incision to heal properly. You may shower with this if you can keep the unit outside of the shower. If any bleeding or leakage is noted please call your doctor's office. This will remain on your incision for 7 days and then should be remov ed. This can be done yourself or by the home nursing staff if applicable. The entire unit is disposable once removed. Once removed, keep incision clean and dry. If redness or drainage is noted, please call your surgeon. IF INCISION IS LEAKING THROUGH DRESSING, CALL THE OFFICE . FOLLOW UP VISIT: If appointment is not already scheduled: Please call [facility] to make a follow-up appointment for 2 weeks after your surgery at . Pending Studies at Discharge: No Stand-Alone Forms: My Open-Plug, Opioid Pain Management, Smoking Cessation Medications and DC Order Prescriptions: New aspirin [Ecotrin Low Strength] 81 mg Tablet,Delayed Release (Dr/Ec) 81 mg PO BID 30 Days Qty: 60 RF: 0 acetaminophen 500 mg Tablet 1,000 mg PO Q8 14 Days Qty: 84 RF: 0 oxycodone 5 mg Tablet 5 - 10 mg PO Q6H PRN (Reason: pain) Qty: 30 RF: 0 docusate sodium 100 mg Capsule 100 mg PO BID 10 Days Qty: 20 RF: 0 cefadroxil 500 mg capsule 500 mg PO BID 10 Days Qty: 20 RF: 0 Continued multivitamin Tablet 1 tab PO QAM RF: 0 Refresh Tears 0.5 % Drops 2 drp OPHTHALMIC (EYE) BID PRN (Reason: Dry Eye(S)) RF: 0 omeprazole 20 mg Tablet,Delayed Release (Dr/Ec) 20 mg PO QAM RF: 0 Discontinued diclofenac sodium 75 mg Tablet,Delayed Release (Dr/Ec) 75 mg PO BID RF: 0 aspirin [Aspir-81] 81 mg Tablet,Delayed Release (Dr/Ec) 81 mg PO DAILY RF: 0 Discharge Orders: Discharge Order (Routine); Ordered 03/24/19 Ordered By: Addison Dowd/Other Patient Handouts: DVT Prevent, Tube Hemovac Drainage Care Dc Admission Data Admit Date/Time: 03/23/19 10:31 Attending Provider: Maxx Galeano Admit Provider: Maxx Galeano Primary Care Provider: Seth Guzman Other Interventions: Discharge Summary Assessment (RN) Last Done: 03/24/19 10:23 DC Date/Time DO NOT enter until pt leaves facility: 03/24/19 13:16
== END 2019-03-24 13:16 | disposition home health service (06) | DRG 470 ==
LOC: ASU 06:19 → 3E 10:31

== ENCOUNTER 2021-06-19 06:09 | Observation (INO) ==
--- NOTE | 2021-04-09 11:52 | PAT Medication Instructions ---
Medication Instructions Date of Service April 09, 2021 Home Medications Medication Instructions Recorded oxycodone 5 mg tablet 5 - 10 mg PO Q6H PRN #30 tab 03/24/19 carboxymethylcellulose sodium 0.5 % eye drops (Refresh Tears) 2 drp OPHTHALMIC (EYE) BID PRN multivitamin 1 tab PO QAM omeprazole 20 mg tablet,delayed release 20 mg PO QAM oxycodone 5 mg tablet 5 - 10 mg PO Q6H PRN aspirin 81 mg tablet,delayed release 81 mg PO QAM DO NOT take the morning of surgery multivitamin 1 tab PO QAM Take morning of surgery With a small sip of water, OTHERWISE NOTHING TO EAT OR DRINK AFTER MIDNIGHT: carboxymethylcellulose sodium 0.5 % eye drops (Refresh Tears) 2 drp OPHTHALMIC (EYE) BID PRN (if needed) omeprazole 20 mg tablet,delayed release 20 mg PO QAM oxycodone 5 mg tablet 5 - 10 mg PO Q6H PRN (okay to take up to 4 hours prior to surgery if needed) aspirin 81 mg tablet,delayed release 81 mg PO QAM (unless surgeon directs otherwise) Take evening before surgery carboxymethylcellulose sodium 0.5 % eye drops (Refresh Tears) 2 drp OPHTHALMIC (EYE) BID PRN (if needed) oxycodone 5 mg tablet 5 - 10 mg PO Q6H PRN (if needed) Other Notes If you have any questions please call us at [phone] or [phone] or [phone] or [phone]
--- NOTE | 2021-04-10 11:19 | Anesthesiology Consultation ---
Date of Service April 10, 2021 Assessment & Plan (1) Encounter for pre-operative examination: - awaiting EKG. - check BSG am DOS. - facial hair: Pt counseled on shaving/trimming facial hair, he verbalized understanding of recommendation and is agreeable. - Outpatient joint assessment: Patient is currently scheduled for inpatient pathway. Outpatient eligibility review pending pre-op EKG. - COVID screening: Per assessment on 04/10/2021: Travel screen negative, no known COVID-19 positive contacts or current COVID-19 related symptoms in past 2 weeks. Patient vaccinated. Surgeon arranging preop COVID testing, scheduled 05/14/2021 [place]. Awaiting results. Chart Review Chart Review: Acceptable Risk for Surgery (pending pre-op EKG) and Patient seen in Pre Admission Testing Teaching & Discussion Pre-Anesthesia Teaching/Discussion Notes: Instructed NPO after midnight before surgery, except medications with 15 cc of water. Medication instructions provided according to the PAT guidelines. History Surgery Operation Date: 05/16/21 10:20 Proposed Procedures p Left Total Knee Arthroplasty - Maxx Galeano DO Height/Weight Height: 5 ft 8 in Weight: 109 kg Allergies Allergy/AdvReac Type Severity Reaction Status Date / Time No Known Allergies Allergy Verified 04/09/21 11:16 Medications Home Medications Medication Instructions Recorded Confirmed Last Taken carboxymethylcellulose sodium 0.5 2 drp OPHTHALMIC (EYE) BID PRN 02/23/19 04/09/21 03/21/19 23:59 % eye drops (Refresh Tears) multivitamin 1 tab PO QAM 02/23/19 04/09/21 03/22/19 07:00 omeprazole 20 mg tablet,delayed 20 mg PO QAM 02/23/19 04/09/21 03/22/19 07:00 release oxycodone 5 mg tablet 5 - 10 mg PO Q6H PRN #30 tab 03/24/19 04/09/21 Unknown aspirin 81 mg tablet,delayed 81 mg PO QAM 04/09/21 04/09/21 Unknown release Past Medical History Medical History (Updated 04/10/21 @ 12:05 by Marley Bell PA-C) Diabetes mellitus, type 2 diet controlled Diverticular disease diverticulitis, colostomies and colostomy reversal GERD (gastroesophageal reflux disease) controlled History of hypertension improved with alcohol cessation, denies needing medication at this time, [facility] Obesity Osteoarthritis Renal neoplasm s/p resection (benign) Sleep apnea previous with PAP use, repeat study showed normalization after significant weight loss Patient denies h/o stroke, seizures, heart attack, heart failure, blood clots or blood transfusions. Exercise / Class Metabolic Activity III < 4 Walking/Shop/Light housework (denies CP or SOB) Past Family History Family History Unknown No family history of adverse response to anesthesia Past Surgical History Surgical History (Updated 04/10/21 @ 11:40 by Marley Bell PA-C) History of bowel resection d/t diverticulitis History of cholecystectomy History of colonoscopy History of colostomy History of colostomy reversal 2007 History of esophagogastroduodenoscopy (EGD) History of hernia repair History of orchiectomy, unilateral History of surgery right/left kidney tumor removal (benign) History of tooth extraction History of total knee replacement right 03/23/2019: SAB at L4-L5, 1 attempt + PNB. No issues per anesthesia postop progress note. Past Anesthesia History No Hx of Anesthesia Complications and No Family Hx of Anesthesia Complications History of PONV No Hx of PONV and No Hx of Motion Sickness Social History Smoking Status: Former smoker Do You Dip or Chew Tobacco: No Smoking End Date: 1997 Hx Alcohol Use: Yes (quit use > 10 yrs ago) Hx Substance Use: No substance use type: does not use Review of Systems Patient denies chest pain, shortness of breath, dyspnea on exertion, fever, chills, cough, wheezing, or palpitations. Physical Exam Vital Signs Vitals BP 153/85 (Pt states is often re-checked at PCP office at end of visit and is typically 130/80s) P 78 TEMP 98.1 SP02 95% on RA RESP 17 Physical Short, thick neck Full cervical extension range of motion without pain Full TMJ range of motion TMD 3 finger breaths Mallampati Score 3 Dentition: intact, missing two teeth left upper and lower side; denies chipped or loose teeth, implants or bridges Lungs: normal respiratory effort. Clear throughout to auscultation, no adventitious breath sounds Cardiac: regular rate and rhythm, no murmurs noted Carotid arteries: negative bruit bilat Extremities: no distal extremity edema Lab Results Anesthesia Preop Results Results Anesthesia Widget: WBC 5.10 K/uL (4.8-10.8) 04/10/21 Hgb 15.2 g/dL (14.0-18.0) 04/10/21 Hct 43.7 % (42-52) 04/10/21 Plt 154 K/uL (130-400) 04/10/21 Na 140 mmol/L (136-145) 04/10/21 K 4.3 mmol/L (3.5-5.1) 04/10/21 Cl 109 mmol/L (98-107) H 04/10/21 CO2 26 mmol/L (21-32) 04/10/21 BUN 19 mg/dl (7-18) H 04/10/21 Creat 0.90 mg/dl (0.6-1.4) 04/10/21 Glucose Level 177 mg/dl (70-99) H 04/10/21 PT 10.3 Seconds (9.0-12.0) 04/10/21 PTT 26.0 Seconds (21.0-31.0) 04/10/21 INR 1.0 (0.9-1.1) 04/10/21 HA1c 5.8 % (4.5-5.6) H 04/10/21 Urine Color Dark Yellow 04/10/21 Urine Appearance Clear (Clear) 04/10/21 Urine pH 6.0 (4.5-7.5) 04/10/21 Urine Specific Arab 1.023 (1.000-1.030) 04/10/21 Urine Protein Negative (Negative) 04/10/21 Urine Glucose (UA) Negative (Negative) 04/10/21 Urine Ketones Negative (Negative) 04/10/21 Urine Blood Negative (Negative) 04/10/21 Urine Nitrite Negative (Negative) 04/10/21 Urine Bilirubin Negative (Negative) 04/10/21 Urine Urobilinogen Negative (Negative) 04/10/21 Urine Leukocyte Esterase Negative (Negative) 04/10/21 Blood Type O Negative 04/10/21 Antibody Screen NEGATIVE 04/10/21 Testing Chest X-Ray Date: 04/10/21 FINDINGS: PA and lateral chest radiographs are compared to study dated 2018. The cardiomediastinal silhouette is unremarkable. There is bibasilar scarring/atelectasis. No airspace consolidation or pleural effusion is identified. There is no pneumothorax. The skeletal structures appear osteopenic. The bony thorax appears intact. Surgical clips are noted in the upper abdomen. IMPRESSION: No active disease in the chest.
--- NOTE | 2021-04-24 13:48 | History & Physical Report ---
Date of Service April 24, 2021 date of surgery: 05/16/21 Procedure: Left Total Knee Arthroplasty Surgeon: Maxx Galeano Assessment & Plan (1) Arthritis of knee, left: Plan: Risks and benefits of procedure discussed in detail today, patient would like to proceed with a Left total knee replacement at [facility] as scheduled. will obtain medical clearance [facility] to [facility] as well as obtain PATs at [facility]. Will place on ASA 81mg po bid x 1 month post op, f/u 2 weeks post op for routine post-operative care and x-ray, sooner if having any problems. will make arrangements for HHPT at the time of discharge. At this point in time, has failed conservative measures and would like to proceed with surgical intervention. The risks and benefits have been discussed including, but not limited to, risk of infection, nerve injury, stiffness, loss of motion, failure to improve, etc. Reasonable outcomes and options of treatment were discussed. An explanation of appropriate alternatives to the procedure that may be advantageous were discussed and their risks and benefits, as well as the risks and benefits of not proceeding with treatment. I offered to answer any additional inquiries concerning the treatment involved. All the patient's questions were answered. The patient is agreeable, understanding of the treatment plan and alternatives, and wishes to proceed with the treatment plan. History of Present Illness Chief Complaint: left knee pain Primary Care Provider: Seth Guzman DO Josh is a 65 year old male who complains of left knee pain, presents for pre-op evaluation prior to a left total knee replacement by Dr Galeano at [facility]. He complains of pain, decreased range of motion and stiffness in his left knee. Currently the patient states that the symptoms are moderate-severe and rates as 6 out of 10. The pain is described as aching, sharp and throbbing. His symptoms are aggravated by ascending stairs, daily activities, first steps while awake walking. Prior NSAIDs include IBU, Aleve and Celebrex. he recently underwent a Right TKA by Dr Galeano and recovered well. Allergies Allergy/AdvReac Type Severity Reaction Status Date / Time No Known Allergies Allergy Verified 04/09/21 11:16 Home Medications Medication Instructions Recorded Confirmed Type carboxymethylcellulose sodium 0.5 2 drp OPHTHALMIC (EYE) BID PRN 11/12/19 12/27/21 History % eye drops (Refresh Tears) multivitamin 1 tab PO QAM 02/23/19 04/09/21 History omeprazole 20 mg tablet,delayed 20 mg PO QAM 02/23/19 04/09/21 History release oxycodone 5 mg tablet 5 - 10 mg PO Q6H PRN #30 tab 03/24/19 04/09/21 Rx aspirin 81 mg tablet,delayed 81 mg PO QAM 04/09/21 04/09/21 History release Past Med/Surg History Medical History Diabetes mellitus, type 2 diet controlled Diverticular disease diverticulitis, colostomies and colostomy reversal GERD (gastroesophageal reflux disease) controlled History of hypertension improved with alcohol cessation, denies needing medication at this time, [facility] Obesity Osteoarthritis Renal neoplasm s/p resection (benign) Sleep apnea previous with PAP use, repeat study showed normalization after significant weight loss Surgical History History of bowel resection d/t diverticulitis History of cholecystectomy History of colonoscopy History of colostomy History of colostomy reversal 2007 History of esophagogastroduodenoscopy (EGD) History of hernia repair History of orchiectomy, unilateral History of surgery right/left kidney tumor removal (benign) History of tooth extraction History of total knee replacement right 03/23/2019: SAB at L4-L5, 1 attempt + PNB. No issues per anesthesia postop progress note. Right Total Knee Arthroplasty(Right) utilizing [employer] 2 patient matched total knee arthroplasty size 6 femur 5 tibia 12 poly-32 oval patella Family History Unknown No family history of adverse response to anesthesia Social History Smoking Status: Former smoker Second Hand Exposure: No; Hx Alcohol Use: Yes (quit use > 10 yrs ago) Hx Substance Use: No Preferred Language: Hungarian Communication Ability: Effective Media Senior Recruiter Required: No Beliefs That Will Affect Care: None Current Living Situation: Alone Feels Safe at Home: Yes Assistive Devices: Glasses Review of Systems Review of Systems: All systems reviewed & are unremarkable except as noted in HPI & below Constitutional: no fever, no chills and no sweats Respiratory: no cough and no dyspnea Cardiovascular: no chest pain, no dyspnea and no orthopnea Gastrointestinal: no abdominal pain, no nausea and no vomiting Musculoskeletal: as per Subjective / HPI Physical Exam Physical Exam: HT: 5ft 8in WT: 109kg Constitutional: WD/WN, vitals as above no acute distress Respiratory: normal respiratory effort, lungs clear to auscultation no respiratory distress, no labored breathing and does not use accessory muscles Cardiovascular: RRR, no murmur, no edema Gastrointestinal (Abdomen): normal bowel sounds, soft, nontender, no hepatosplenomegaly Musculoskeletal: Knee: + knee abnormal to inspection (LEFT KNEE), + effusion (+1 effusion), + limited ROM of knee (ROM 0/3/110), + knee ROM with crepitation, + joint line tenderness (medial joint line) and + Claire's sign positive; no deformity, no skin erythema, no ecchymosis, no valgus laxity, no varus laxity, anterior drawer test negative, Segundo's sign negative and pivot shift test negative Results & Data Results & Data ([facility]) Diagnostic Findings Left Knee X-ray: left knee series confirm advanced degenerative changes to the left knee, greatest medial compartments and patellofemoral joint, showing joint space narrowing, osteophyte formation and subchondral sclerosis. no acute bony pathology noted.
--- NOTE | 2021-05-22 08:33 | History & Physical Report ---
Date of Service May 22, 2021 date of surgery: 05/29/21 Procedure: Left Total Knee Arthroplasty Surgeon: Mxax Galeano Assessment & Plan (1) Arthritis of knee, left: Plan: Risks and benefits of procedure discussed in detail today, patient would like to proceed with a Left total knee replacement at [facility] as scheduled. will obtain medical clearance through [facility] prior to [facility] as well as obtain PATs at [facility]. Will place on ASA 81mg po bid x 1 month post op, f/u 2 weeks post op for routine post-operative care and x-ray, sooner if having any problems. will make arrangements for HHPT at the time of discharge. At this point in time, has failed conservative measures and would like to proceed with surgical intervention. The risks and benefits have been discussed including, but not limited to, risk of infection, nerve injury, stiffness, loss of motion, failure to improve, etc. Reasonable outcomes and options of treatment were discussed. An explanation of appropriate alternatives to the procedure that may be advantageous were discussed and their risks and benefits, as well as the risks and benefits of not proceeding with treatment. I offered to answer any additional inquiries concerning the treatment involved. All the patient's questions were answered. The patient is agreeable, understanding of the treatment plan and alternatives, and wishes to proceed with the treatment plan. History of Present Illness Chief Complaint: left knee pain Primary Care Provider: Seth Guzman DO Josh is a 65 year old male who complains of left knee pain, presents for pre-op evaluation prior to a left total knee replacement by Dr Galeano at [facility]. He complains of pain, decreased range of motion and stiffness in his left knee. Currently the patient states that the symptoms are moderate-severe and rates as 6 out of 10. The pain is described as aching, sharp and throbbing. His symptoms are aggravated by ascending stairs, daily activities, first steps while awake walking. Prior NSAIDs include IBU, Aleve and Celebrex. he recently underwent a Right TKA by Dr Galeano and recovered well. Allergies Allergy/AdvReac Type Severity Reaction Status Date / Time No Known Allergies Allergy Verified 04/09/21 11:16 Home Medications Medication Instructions Recorded Confirmed Type carboxymethylcellulose sodium 0.5 2 drp OPHTHALMIC (EYE) BID PRN 11/12/19 12/27/21 History % eye drops (Refresh Tears) multivitamin 1 tab PO QAM 02/23/19 04/09/21 History omeprazole 20 mg tablet,delayed 20 mg PO QAM 02/23/19 04/09/21 History release oxycodone 5 mg tablet 5 - 10 mg PO Q6H PRN #30 tab 03/24/19 04/09/21 Rx aspirin 81 mg tablet,delayed 81 mg PO QAM 04/09/21 04/09/21 History release Past Med/Surg History Medical History Diabetes mellitus, type 2 diet controlled Diverticular disease diverticulitis, colostomies and colostomy reversal GERD (gastroesophageal reflux disease) controlled History of hypertension improved with alcohol cessation, denies needing medication at this time, [facility] Obesity Osteoarthritis Renal neoplasm s/p resection (benign) Sleep apnea previous with PAP use, repeat study showed normalization after significant weight loss Surgical History History of bowel resection d/t diverticulitis History of cholecystectomy History of colonoscopy History of colostomy History of colostomy reversal 2007 History of esophagogastroduodenoscopy (EGD) History of hernia repair History of orchiectomy, unilateral History of surgery right/left kidney tumor removal (benign) History of tooth extraction History of total knee replacement right 03/23/2019: SAB at L4-L5, 1 attempt + PNB. No issues per anesthesia postop progress note. Right Total Knee Arthroplasty(Right) utilizing Jones & Nephew journey 2 patient matched total knee arthroplasty size 6 femur 5 tibia 12 poly-32 oval patella Family History Unknown No family history of adverse response to anesthesia Social History Smoking Status: Former smoker Second Hand Exposure: No; Hx Alcohol Use: Yes (quit use > 10 yrs ago) Hx Substance Use: No Preferred Language: Palestinian Communication Ability: Effective Flat Surfacer Jewel Required: No Beliefs That Will Affect Care: None Current Living Situation: Alone Feels Safe at Home: Yes Assistive Devices: Glasses Review of Systems Constitutional: no fever, no chills and no sweats Respiratory: no cough and no dyspnea Cardiovascular: no chest pain, no dyspnea and no orthopnea Gastrointestinal: no abdominal pain, no nausea and no vomiting Musculoskeletal: as per Subjective / HPI Physical Exam Physical Exam: HT: 5ft 8in WT: 109kg Constitutional: WD/WN, vitals as above no acute distress Respiratory: normal respiratory effort, lungs clear to auscultation no respiratory distress, no labored breathing and does not use accessory muscles Cardiovascular: RRR, no murmur, no edema Gastrointestinal (Abdomen): normal bowel sounds, soft, nontender, no hepatosplenomegaly Musculoskeletal: Knee: + knee abnormal to inspection (LEFT KNEE), + effusion (+1 effusion), + limited ROM of knee (ROM 0/3/110), + knee ROM with crepitation, + joint line tenderness (medial joint line) and + Claire's sign positive; no deformity, no skin erythema, no ecchymosis, no valgus laxity, no varus laxity, anterior drawer test negative, Segundo's sign negative and pivot shift test negative Results & Data Results & Data ([facility]) Diagnostic Findings Left Knee X-ray: left knee series confirm advanced degenerative changes to the left knee, greatest medial compartments and patellofemoral joint, showing joint space narrowing, osteophyte formation and subchondral sclerosis. no acute bony pathology noted.
[~2021-06-19 06:09] MED LIST changes: -ACETAMINOPHEN 500 MG TAB PO SCH; -CEFAZOLIN 2000MG 2,000 MG/15 ML SYR IV SCH; -ROPIVACAINE 0.5% HCL/PF 150 MG, BUPIVACAINE 0.5% MPF 30 ML, EPINEPHrine 30MG/30ML (OR U... INFIL SCH; +ROPIVACAINE 0.5% HCL/PF 150 MG, BUPIVACAINE 0.75% MPF 20 ML, EPINEPHrine 30MG/30ML (OR ... INFIL SCH; -TRANEXAMIC ACID 1,000 MG **IV Pre-op IV SCH; +ceFAZolin 2000MG 2,000 MG/15 ML SYR IV SCH; -dexAMETHasone 4 MG TAB PO SCH; +oxyCODONE HCL 10 MG TABCR (OxyCONTIN) PO SCH
[2021-06-19] MEDS ORDERED: ROPIVACAINE 0.5% 5 MG/ML 30 ML VIAL ONE (06:26)
[2021-06-19] MEDS ORDERED: BUPIVACAINE 0.5 % 5 MG/1 ML PF 10ML VIAL ONE (06:26)
--- NOTE | 2021-06-19 07:35 | History & Physical Bridge Note ---
Date of Service June 19, 2021 History & Physical Bridge Note I have examined the patient, reviewed the History & Physical and in the interval since the performance of the History & Physical I have noted the following changes of clinical significance: no changes noted
[2021-06-19] MEDS ORDERED: TRANEXAMIC ACID / 0.7% NACL 1,000 MG/100 ML BAG IV STA ×2 (07:36→07:37)
[2021-06-19] MEDS ORDERED: ONDANSETRON INJ 2 MG/ML 2 ML VIAL IV PRN ×2 (07:49→13:27)
[2021-06-19] MEDS ORDERED: fentaNYL citrate 100 MCG/2 ML VIAL IV PRN (07:49)
[2021-06-19] MEDS ORDERED: ePHEDrine sulfate 50 MG/ML AMP IV PRN (07:49)
[2021-06-19] MEDS ORDERED: ATROPINE SULFATE 0.1 MG/ML 10ML SYR IV PRN (07:49)
[2021-06-19] MEDS ORDERED: MIDAZOLAM HCL 1 MG/ML 2ML VIAL ONE (07:55)
--- NOTE | 2021-06-19 08:09 | Communication Note ---
Date of Service: June 19, 2021 Dr. Church who confirmed assignment to case, states is aware of PCP note without clearance statement and feels it is acceptable with PCP acknowledgement of upcoming procedure/patient status. Decision on if surgery is to proceed will further be to anesthesiologist, surgeon and patient. Retirement Plan Specialist/admin/OR aware.
[2021-06-19] MEDS ORDERED: PROPOFOL IV EMULSION 10 MG/ML 20 ML VIAL IV ONE ×2 (08:12→10:49)
[2021-06-19] MEDS ORDERED: LIDOCAINE 2% 2 ML VIAL/AMP(20MG/ML) INFIL ONE (08:12)
[2021-06-19] MEDS ORDERED: ORTHO JOINT ANESTHETIC ONE (09:12)
--- NOTE | 2021-06-19 09:23 | History & Physical Bridge Note ---
Date of Service June 19, 2021 History & Physical Bridge Note I have examined the patient, reviewed the History & Physical and in the interval since the performance of the History & Physical I have noted the following changes of clinical significance: no changes noted patient does not need PCP clearance
[2021-06-19] MEDS ORDERED: KETAMINE 50 MG/5 ML SYRINGE ONE (10:29)
--- NOTE | 2021-06-19 10:41 | Operative Report ---
Post Operative Report Pre & Post Diagnosis Operation Date: 06/19/21 08:50 Pre-Op Diagnosis: Left Knee Osteoarthritis Post-Op Diagnosis: Left Knee Osteoarthritis I identified the patient and participated in the time-out.: Yes Procedure Operation Date: 06/19/21 08:50 Actual Procedures p Left Total Knee Arthroplasty, Cemented utilizing Jones & NephNazar journey 2 patient matched total knee arthroplasty size femur 6 tibia 5 polyten patella 29 oval - Maxx Galeano DO Surgeon Maxx Galeano DO [employer] Kory MOSHER Estimated Blood Loss 5 Findings Consistent with Post-Op Diagnosis Patient presents with severe end-stage DJD left knee with varus alignment subchondral sclerosis marginal osteophytes moderate to large effusion eburnated [id number] tricompartmentally Specimens Bone and cartilage Drains Medium bore Hemovac Anesthesia Type MAC Spinal Regional Complications none Disposition Accompanied Patient To Recovery: No Disposition: Recovery Room Indications Patient presents with severe end-stage tricompartmental DJD left knee no response to conservative management the above intraoperative findings noted patient failed times a corticosteroid injection Visco supplementation relative rest activity modification the above intraoperative findings were noted Description of Procedure After proper prepping and draping of the left lower extremity anterior midline incision was made over the region of the extensor extensor mechanism after meticulous hemostasis was obtained and maintained in subcutaneous tissues a medial parapatellar incision was made The patella was subluxed lateralward the medial lateral gutter were cleaned from any hypertrophic synovitis and scar tissue of the distal femoral block was placed and the distal femoral osteotomy cut was made subsequently the chamfers anterior and posterior osteotomy cuts were made utilizing the 4-in-1 block the tibia was subsequently subluxed anteriorward medial and ateral meniscal remnants were excised in their entirety remnants of the anterior and posterior cruciate ligaments were excised in their entirety excellent exposure of the proximal tibia was obtained the tibial osteotomy guide was placed on the proximal tibial osteotomy cut was made once again the knee was irrigated with copious amounts of sterile saline solution the patella was subsequently everted lateralward thickened scar tissue around the patella was removed the patella was subsequently cut utilizing a freehand technique and was drilled prepared for final preparation and placement of patella socially flexion-extension gaps were checked and the equal and symmetric trials were placed to the appropriate femoral and tibial trials with poly-spacer being placed for equal flexion and extension gaps and full range of motion including extension to 0 and flexion to 140 the trial components after having been taken to recovery range of motion was subsequently removed meticulous hemostasis was obtained and maintained subsequently a knee block injection of joint cocktail including ropivacaine 0.5% 150 mg. Bupivacaine 0.5% epinephrine 1-200,030 mL's toradol 30 mg dexamethasone 4 mg ketamine 10 mg clonidine 100 micrograms normal saline solution 30 mg was infiltrated into the soft tissues of the posterior knee medial lateral gutters and periosteal synovium special attention was paid to protect neurovascular structures at all times subsequently trial components having been removed the knee was irrigated with sterile saline solution. debris was removed the proximal tibia was subsequently prepared and was made ready for the placement of the tibial component tibial component was also cemented and tamped into position the femoral component was subsequently placed and cemented in the position the patellar component was subsequently cemented in position because hemostasis once again obtained and maintained wound having been thoroughly irrigated with debridement and debridement lavage was performed as well as a medial parapatellar incision closed with #1 Vicryl in interrupted fashion subcutaneous was closed with #2 Vicryl skin was closed with skin clips. PA-C was necessary for prepping and drapping as well as wound closure of deep fascia Sub cutaneous tissue and skin and was necessary for the case. A sterile compressive dressing was placed patient was taken to recovery in stable condition of report dictated by Froylan I attest to the content of the Intraoperative Record and any orders documented therein. Any exceptions are noted below.Due to the complex nature of the procedure, the entire surgery was performed with the operational assistance of Iqra MOSHER The cafe assistant, under direct supervision, was involved in the actual performance of all aspects of the surgical procedure including hemostasis, tissue retraction and incision, instrument management, patient positioning, and wound closure. I attest to the content of the Intraoperative Record and any orders documented therein. Any exceptions are noted below.
--- NOTE | 2021-06-19 11:56 | XRay Report ---
XR knee LT 1 or 2V routine CLINICAL HISTORY: Surgical Post Op TECHNIQUE: 2 views of the left knee were obtained. Comparison: None available at the time of this dictation. FINDINGS: Patient is status post total knee arthroplasty with expected postsurgical changes including soft tiss ue swelling, subcutaneous emphysema, and surgical staple placement. No periarticular lucency or hardw are fracture is seen. The alignment is anatomic. No joint effusion is seen. No soft tissue abnormali ty is seen. IMPRESSION: Expected postoperative appearance status post placement of total knee arthroplasty. ACT 112: Negative or not required by law. Electronically signed by: Oswaldo Hutchinson M.D. 06/19/2021 11:55 AM
--- NOTE | 2021-06-19 12:06 | Anesthesiology Progress Note ---
Date of Service June 19, 2021 Anesthesia Post Procedure Vital Signs Vital Signs: Temp Pulse Pulse Resp BP BP Pulse Ox 06/19/21 11:55 56 L 12 143/98 H 95 06/19/21 11:45 52 L 14 143/85 H 100 06/19/21 11:35 65 14 147/93 H 100 06/19/21 11:25 64 11 L 147/89 H 100 06/19/21 11:17 98.4 F 68 14 157/98 H 100 06/19/21 06:32 99.1 F 88 20 162/101 H 95 Pain Intensity Left Knee: Pain Intensity: 3 Transfer of Care Handoff Completed per policy Notes Mental Status: alert / awake / arousable and participated in evaluation Patient Amnestic to Procedure: Yes Nausea / Vomiting: adequately controlled Pain: adequately controlled Airway Patency, RR, SpO2: stable & adequate BP & HR: stable & adequate Hydration State: stable & adequate Neuraxial Anesthesia: was administered and sensory block is resolving Anesthetic Complications: no major complications apparent and Pt Satisfied with anesthetic care
[2021-06-19] MEDS ORDERED: bisacodyL 10 MG SUPP PR PRN (13:27)
[2021-06-19] MEDS ORDERED: oxyCODONE HCL IR 5 MG TAB (IMMEDIATE RELEASE) PO PRN (13:27)
[2021-06-19] MEDS ORDERED: HYDROmorphone INJ 0.5 MG/0.5 ML SYR IV PRN (13:27)
[2021-06-19] MEDS ORDERED: MAGNESIUM HYDROXIDE SUSP 30 ML UDC PO PRN (13:27)
[2021-06-19] MEDS ORDERED: NALOXONE HCL 0.4 MG/1 ML VIAL/CARP IV PRN (13:27)
[2021-06-19] MEDS ORDERED: ARTIFICIAL TEARS OP PRN (13:37)
[2021-06-19] MEDS: SODIUM CHLORIDE 0.9% 1000ML 1,000 ML IV SCH (13:58)
[2021-06-19] MEDS: ACETAMINOPHEN 500 MG TAB PO SCH ×2 (13:58→20:51)
[2021-06-19] MEDS: ceFAZolin 2000MG 2,000 MG/15 ML SYR IV SCH (17:42)
[2021-06-19] MEDS: DOCUSATE SODIUM 100 MG CAP PO SCH (20:51)
[2021-06-19] MEDS: ASPIRIN 81 MG ECTAB PO SCH (20:51)
[2021-06-19] MEDS ORDERED: SENNA 8.6 MG TAB PO SCH (21:00)
[2021-06-20] MEDS: SODIUM CHLORIDE 0.9% 1000ML 1,000 ML IV SCH (00:15)
[2021-06-20] MEDS: ceFAZolin 2000MG 2,000 MG/15 ML SYR IV SCH (02:59)
[2021-06-20 06:16] LABS: Hematocrit (blood only) 36.2 % (42-52); Mean Corpuscular Hemoglobin 30.8 pg (25-34); Mean Corpuscular Hgb Conc 35.9 g/dL (32-36); Mean Corpuscular Volume 85.8 fL (80-100); Mean Platelet Volume 9.1 fL (7.4-10.4); Platelet Count 152 K/uL (130-400); RDW Coefficient of Variation 13.5 % (11.5-14.5); RDW Standard Deviation 42.4 fL (36.4-46.3); Red Blood Count 4.22 M/uL (4.7-6.1); White Blood Count 10.91 K/uL (4.8-10.8)
[2021-06-20] MEDS: ACETAMINOPHEN 500 MG TAB PO SCH (06:26)
[2021-06-20 06:31] LABS: Calcium 8.9 mg/dl (8.5-10.1); Creatinine Clr Calc Pharmacy 110.4 ml/min; Est GFR (African American) 108.8 ml/min; Est GFR (Non-African American) 93.9 ml/min
[2021-06-20] MEDS ORDERED: MULTIVITAMIN TAB PO SCH (09:00)
[2021-06-20] MEDS ORDERED: PANTOprazole 40 MG TAB PO SCH (09:00)
--- NOTE | 2021-06-20 09:37 | Orthopedic Progress Note ---
Date of Service June 20, 2021 Assessment & Plan (1) Arthritis of knee, left: Plan: POD 1 s/p Left TKA PT/OT protocols. WBAT. DVT prophylaxis - ASA bid, SCD's, ALFRED's Pain management as written. DC planning - Planning for HH services upon DC. Admission and Anticipated Discharge Date Admission Date: June 19, 2021 Subjective POD 1 Pt lying in bed awake, alert. No complaints this AM. Pain controlled. Denies SOB, CP, LH. Physical Exam Physical Exam: Dressings C/D/I. Calves soft, NT. NV intact. Toes mobile. Good DF/PF of foot. Results & Data ([facility]) Vital Signs (Past 12 Hours) Vital Signs Temp Pulse Resp BP BP Pulse Ox 06/20/21 07:23 36.5 C 78 18 171/82 H 97 06/20/21 02:59 36.5 C 71 16 157/87 H 97 06/19/21 22:28 36.7 C 69 16 151/69 H 97 Laboratory Results Laboratory Results WBC 10.91 K/uL (4.8-10.8) H 06/20/21 06:01 RBC 4.22 M/uL (4.7-6.1) L 06/20/21 06:01 Hgb 13.0 g/dL (14.0-18.0) L 06/20/21 06:01 Hct 36.2 % (42-52) L 06/20/21 06:01 MCV 85.8 fL (80-100) 06/20/21 06:01 MCH 30.8 pg (25-34) 06/20/21 06:01 MCHC 35.9 g/dL (32-36) 06/20/21 06:01 RDW Std Deviation 42.4 fL (36.4-46.3) 06/20/21 06:01 RDW Coeff of Mayelin 13.5 % (11.5-14.5) 06/20/21 06:01 Plt Count 152 K/uL (130-400) 06/20/21 06:01 MPV 9.1 fL (7.4-10.4) 06/20/21 06:01 Sodium 137 mmol/L (136-145) 06/20/21 06:01 Potassium 4.0 mmol/L (3.5-5.1) 06/20/21 06:01 Chloride 107 mmol/L (98-107) 06/20/21 06:01 Carbon Dioxide 25 mmol/L (21-32) 06/20/21 06:01 Anion Gap 5 (3-11) 06/20/21 06:01 BUN 20 mg/dl (6-23) 06/20/21 06:01 Creatinine 0.77 mg/dl (0.6-1.4) 06/20/21 06:01 Est Cr Clr Drug Dosing 110.4 ml/min 06/20/21 06:01 Est GFR ( Amer) 108.8 ml/min 06/20/21 06:01 Est GFR (Non-Af Amer) 93.9 ml/min 06/20/21 06:01 BUN/Creatinine Ratio 26.0 (10-20) H 06/20/21 06:01 Glucose 163 mg/dl (70-99(Fasting)) H 06/20/21 06:01 POC Glucose 128 mg/dl (70-99) H 06/19/21 11:19 Calcium 8.9 mg/dl (8.5-10.1) 06/20/21 06:01 SARS-CoV-2 RNA ([facility]) Cancelled 06/19/21 Unknown SARS-CoV-2 RNA ([facility]) Cancelled 06/19/21 Unknown SARS-CoV-2, RNA, NAAT NEGATIVE (NEGATIVE) 06/19/21 Unknown Blood Type O Negative 06/19/21 06:45 Antibody Screen NEGATIVE 06/19/21 06:45 Impressions Knee X-Ray 06/19/21 11:22 XR knee LT 1 or 2V routine CLINICAL HISTORY: Surgical Post Op TECHNIQUE: 2 views of the left knee were obtained. Comparison: None available at the time of this dictation. FINDINGS: Patient is status post total knee arthroplasty with expected postsurgical changes including soft tissue swelling, subcutaneous emphysema, and surgical staple placement. No periarticular lucency or hardware fracture is seen. The alignment is anatomic. No joint effusion is seen. No soft tissue abnormality is seen. IMPRESSION: Expected postoperative appearance status post placement of total knee arthroplasty. ACT 112: Negative or not required by law. Electronically signed by: Oswaldo Hutchinson M.D. 06/19/2021 11:55 AM
[2021-06-20] MEDS: ASPIRIN 81 MG ECTAB PO SCH (10:38)
[2021-06-20] MEDS: DOCUSATE SODIUM 100 MG CAP PO SCH (10:38)
--- NOTE | 2021-06-22 10:31 | Discharge Summary ---
Date of Service June 22, 2021 Admission HPI Per Admitting Provider Chief Complaint: left knee pain Primary Care Provider: Seth Guzman DO Josh is a 65 year old male who complains of left knee pain, presents for pre-op evaluation prior to a left total knee replacement by Dr Galeano at [facility]. He complains of pain, decreased range of motion and stiffness in his left knee. Currently the patient states that the symptoms are moderate-severe and rates as 6 out of 10. The pain is described as aching, sharp and throbbing. His symptoms are aggravated by ascending stairs, daily activities, first steps while awake walking. Prior NSAIDs include IBU, Aleve and Celebrex. he recently underwent a Right TKA by Dr Galeano and recovered well. Admission Exam Per Admitting Provider Physical Exam: HT: 5ft 8in WT: 109kg Constitutional: WD/WN, vitals as above no acute distress Respiratory: normal respiratory effort, lungs clear to auscultation no respiratory distress, no labored breathing and does not use accessory muscles Cardiovascular: RRR, no murmur, no edema Gastrointestinal (Abdomen): normal bowel sounds, soft, nontender, no hepatosplenomegaly Musculoskeletal: Knee: + knee abnormal to inspection (LEFT KNEE), + effusion (+1 effusion), + limited ROM of knee (ROM 0/3/110), + knee ROM with crepitation, + joint line tenderness (medial joint line) and + Claire's sign positive; no deformity, no skin erythema, no ecchymosis, no valgus laxity, no varus laxity, anterior drawer test negative, Segundo's sign negative and pivot shift test negative Principal Diagnosis Left Knee Osteoarthritis Discharge Data Allergies Allergy/AdvReac Type Severity Reaction Status Date / Time No Known Allergies Allergy Verified 06/19/21 06:30 Procedures Performed Operation Date: 06/19/21 08:50 Actual Procedures p Left Total Knee Arthroplasty, Cemented(Left) - Maxx Galeano DO Ordered Studies 05/29/21 05:00 US - OR guided needle placemen Routine 06/19/21 05:00 US - OR guided needle placemen Routine Hospital Course (1) Arthritis of knee, left: Date of Service June 20, 2021 Assessment & Plan (1) Arthritis of knee, left: Plan: POD 1 s/p Left TKA PT/OT protocols. WBAT. DVT prophylaxis - ASA bid, SCD's, ALFRED's Pain management as written. DC planning - Planning for HH services upon DC. Admission and Anticipated Discharge Date Admission Date: June 19, 2021 Subjective POD 1 Pt lying in bed awake, alert. No complaints this AM. Pain controlled. Denies SOB, CP, LH. Physical Exam Physical Exam: Dressings C/D/I. Calves soft, NT. NV intact. Toes mobile. Good DF/PF of foot. Results & Data ([facility]) Vital Signs (Past 12 Hours) Vital Signs Temp Pulse Resp BP BP Pulse Ox 06/20/21 07:23 36.5 C 78 18 171/82 H 97 06/20/21 02:59 36.5 C 71 16 157/87 H 97 06/19/21 22:28 36.7 C 69 16 151/69 H 97 Laboratory Results Laboratory Results WBC 10.91 K/uL (4.8-10.8) H 06/20/21 06:01 RBC 4.22 M/uL (4.7-6.1) L 06/20/21 06:01 Hgb 13.0 g/dL (14.0-18.0) L 06/20/21 06:01 Hct 36.2 % (42-52) L 06/20/21 06:01 MCV 85.8 fL (80-100) 06/20/21 06:01 MCH 30.8 pg (25-34) 06/20/21 06:01 MCHC 35.9 g/dL (32-36) 06/20/21 06:01 RDW Std Deviation 42.4 fL (36.4-46.3) 06/20/21 06:01 RDW Coeff of Mayelin 13.5 % (11.5-14.5) 06/20/21 06:01 Plt Count 152 K/uL (130-400) 06/20/21 06:01 MPV 9.1 fL (7.4-10.4) 06/20/21 06:01 Sodium 137 mmol/L (136-145) 06/20/21 06:01 Potassium 4.0 mmol/L (3.5-5.1) 06/20/21 06:01 Chloride 107 mmol/L (98-107) 06/20/21 06:01 Carbon Dioxide 25 mmol/L (21-32) 06/20/21 06:01 Anion Gap 5 (3-11) 06/20/21 06:01 BUN 20 mg/dl (6-23) 06/20/21 06:01 Creatinine 0.77 mg/dl (0.6-1.4) 06/20/21 06:01 Est Cr Clr Drug Dosing 110.4 ml/min 06/20/21 06:01 Est GFR ( Amer) 108.8 ml/min 06/20/21 06:01 Est GFR (Non-Af Amer) 93.9 ml/min 06/20/21 06:01 BUN/Creatinine Ratio 26.0 (10-20) H 06/20/21 06:01 Glucose 163 mg/dl (70-99(Fasting)) H 06/20/21 06:01 POC Glucose 128 mg/dl (70-99) H 06/19/21 11:19 Calcium 8.9 mg/dl (8.5-10.1) 06/20/21 06:01 SARS-CoV-2 RNA (ALBARO) Cancelled 06/19/21 Unknown SARS-CoV-2 RNA (ALBARO) Cancelled 06/19/21 Unknown SARS-CoV-2, RNA, NAAT NEGATIVE (NEGATIVE) 06/19/21 Unknown Blood Type O Negative 06/19/21 06:45 Antibody Screen NEGATIVE 06/19/21 06:45 Impressions Knee X-Ray 06/19/21 11:22 XR knee LT 1 or 2V routine CLINICAL HISTORY: Surgical Post Op TECHNIQUE: 2 views of the left knee were obtained. Comparison: None available at the time of this dictation. FINDINGS: Patient is status post total knee arthroplasty with expected postsurgical changes including soft tissue swelling, subcutaneous emphysema, and surgical staple placement. No periarticular lucency or hardware fracture is seen. The alignment is anatomic. No joint effusion is seen. No soft tissue abnormality is seen. IMPRESSION: Expected postoperative appearance status post placement of total knee arthroplasty. ACT 112: Negative or not required by law. Electronically signed by: Oswaldo Hutchinson M.D. 06/19/2021 11:55 AM Total Time Total Time Spent Total Time Spent (In Minutes): 10 Discharge Plan Discharge Items Patient Disposition: Home - Home Health Services Reason For Visit: Left Knee Osteoarthritis Discharge Diagnosis: Left Knee Osteoarthritis Activity: Per Instructions section Weightbearing: Left weightbearing Weightbearing Comment: as tolerated with walker Non-emergency contact: Surgeon Call non-emergency contact if: your pain is not controlled, your temperature is above 101.5, your wound has increased redness and your wound has increased drainage Follow-up/Referrals: Maxx Galeano, [Surgeon] - 07/03/21 10:30 am PCP,NO [Primary Care Provider] - Diet: Regular Addtl Attending Provider Instructions: ACTIVITY RECOMMENDATIONS: SELF CARE INSTRUCTIONS AFTER TOTAL KNEE REPLACEMENT A. You may need to continue a physical therapy program after discharge from the hospital. There are several options available to you. Your doctor will assist you in selecting the best one for you. 1. An out-patient facility 2 to 3 times a week for therapy or home therapy. 2. Continue working on all exercises taught to you in the hospital. Your goals should be to increase bending of your knee to 90 degrees and beyond and to fully straighten your knee. B. You may progress at your own pace from walking with a walker or crutches to a cane; then to no assistive devices. C. Make walking a part of your daily routine. Be up as much as comfortable with rest periods throughout the day. Rest with leg elevation is very important. Use the ice wrap frequently for the first 3-4 weeks. D. There are no restrictions on activities. You may ride in a car, shop, participate in tours hostess and all social activities. E. Wear the long elastic stockings (ALFRED hose) 20 hours a day for 2 weeks after surgery. They can be removed several times a day for laundering and for a bath. F. You may shower, no tub baths until cleared by your doctor. SPECIAL CARE INSTRUCTIONS: VERY IMPORTANT TO READ AND REVIEW A. There are a few signs you need to watch for after you are home. Call [facility] if you notice any of the followin. Increased severe knee pain. Some pain is expected especially when you exercise. 2. Increased swelling in your leg or knee; pain or swelling of the calf muscle in either lower leg. 3. Any fluid drainage from the incision. 4. Shortness of breath or chest pain. B. Please call [facility] at if you have any concerns or questions about your operation or recovery. The doctor or his nurse will return your call promptly. C. You must take antibiotics before dental work, bladder, bowel or other s urgery. Your doctor will provide you with a permanent care to carry describing this precaution. IMPORTANT: * REMEMBER TO TAKE ASPIRIN, 81 MG, TWICE DAILY FOR 4 WEEKS UNLESS OTHERWISE DIRECTED. THIS IS YOUR BLOOD THINNER. * CALL IF INCREASED PAIN, REDNESS, DRAINAGE OR FEVER GREATER THAT 101. * WEAR ALFRED HOSE 20 HOURS PER DAY FOR 2 WEEKS. * BINDU dressing - This is a large suction dressing covering your incision. This will help pull any excess drainage from the wound and allow your incision to heal properly. You may shower with this if you can keep the unit outside of the shower. If any bleeding or leakage is noted please call your doctor's office. This will remain on your incision for 7 days and then should be removed. This can be done yourself or by the home nursing staff if applicable. The entire unit is disposable once removed. Once removed, keep incision clean and dry. If redness or drainage is noted, please call your surgeon. . FOLLOW UP VISIT: If appointment is not already scheduled: Please call [facility] to make a follow-up appointment for 2 weeks after your surgery at . Stand-Alone Forms: My [facility] [employer], Smoking Cessation Medications and DC Order Prescriptions: New aspirin 81 mg Tablet,Delayed Release (Dr/Ec) 81 mg PO BID 30 Days Qty: 60 RF: 0 acetaminophen [Tylenol Extra Strength] 500 mg Tablet 1,000 mg PO Q8 14 Days Qty: 84 RF: 0 polyethylene glycol 3350 [Miralax] 17 gram powder in packet 17 g PO DAILY PRN (Reason: constipation) Qty: 5 RF: 0 cefadroxil 500 mg capsule 500 mg PO BID Qty: 28 RF: 1 oxycodone 5 mg Tablet 5 mg PO Q4H MDD 6 PRN (Reason: pain) Qty: 30 RF: 0 Continued multivitamin Tablet 1 tab PO QAM RF: 0 carboxymethylcellulose sodium [Refresh Tears] 0.5 % Drops 2 drp OPHTHALMIC (EYE) BID PRN (Reason: Dry Eye(S)) RF: 0 omeprazole 20 mg Tablet,Delayed Release (Dr/Ec) 20 mg PO QAM RF: 0 Discontinued oxycodone 5 mg Tablet 5 - 10 mg PO Q6H PRN (Reason: pain) Qty: 30 RF: 0 aspirin [Aspir-81] 81 mg Tablet,Delayed Release (Dr/Ec) 81 mg PO QAM RF: 0 Discharge Orders: Discharge Order (Routine); Ordered 06/20/21 Ordered By: Kory Dowd/Other Patient Handouts: Arthritis: Exercise, Knee Osteoarthritis Admission Data Admit Date/Time: 06/19/21 11:22 Attending Provider: Maxx Galeano Admit Provider: Maxx Galeano Primary Care Provider: PCP,NO Other Providers: [facility],Hospital ; [facility],Home Health Other Interventions: Discharge Summary Assessment (RN) Last Done: 06/20/21 12:37
== END 2021-06-20 14:05 | disposition home health service (06) ==
LOC: ASU 06:09 → 3E 06:09